=== PATIENT | male | born 1960 | race Caucasian/White ===

== ENCOUNTER 2018-03-12 12:40 | Emergency (ER) | payer BC, MEDICAID ==
[2018-03-12] MEDS ORDERED: Lidocaine 1% Inj (20ml) IJ STA (13:33)
[2018-03-12] MEDS ORDERED: TDAP Vaccine 0.5 mL Syr IM ONE (13:33)
[2018-03-12 13:34] VITALS: BMI 30.7
--- NOTE | 2018-03-12 13:47 | ED PDOC ---
Arrival/HPI - General Chief Complaint: Abnormal Skin Integrity Time Seen by Provider: 03/12/18 13:20 - History of Present Illness Narrative History of Present Illness (Text): 03/12/18 13:44 Patient is a 57 yo M with PMH of Hypertension, Hypercholesterolemia, and Diabetes presents to emergency department due to right index finger injury. Patient states that prior to arrival he accidentally shut this car door on his right index finger, which caused a laceration. Patient denies pain in hand, other fingers, or wrist. Patient is unsure of when his last tetanus shot was. Patient denies CP, SOB, n/v/d, abdominal pain, fever, chills, LINDQUIST, or dizziness. PMD: Jad Huerta) Past Medical History - Provider Review Nursing Documentation Reviewed: Yes - Infectious Disease Hx of Infectious Diseases: None - Cardiac Hx Hypertension: Yes - Endocrine/Metabolic Hx Diabetes Mellitus Type 2: Yes - Psychiatric Hx Substance Use: No - Surgical History Hx Cardiac Catheterization: Yes Other/Comment: x 2 stents - Anesthesia Hx Anesthesia: Yes Hx Anesthesia Reactions: No Hx Malignant Hyperthermia: No Family/Social History - Physician Review Nursing Documentation Reviewed: Yes Family/Social History: No Known Family HX Smoking Status: Heavy Smoker > 10 Cigarettes Daily Hx Alcohol Use: No Hx Substance Use: No Allergies/Home Meds Allergies/Adverse Reactions: Allergies No Known Allergies Allergy (Verified 10/28/12 19:50) Review of Systems - Physician Review All systems were reviewed & negative as marked: Yes - Review of Systems Constitutional: Normal Eyes: Normal ENT: Normal Respiratory: Normal Cardiovascular: Normal Gastrointestinal: Normal Genitourinary Male: Normal Musculoskeletal: Normal Skin: Laceration (right index) Neurological: Normal Endocrine: Normal Hemo/Lymphatic: Normal Psychiatric: Normal Physical Exam Vital Signs Reviewed: Yes Temperature: Afebrile Blood Pressure: Normal Pulse: Regular Respiratory Rate: Normal Appearance: Positive for: Non-Toxic Pain Distress: Mild Mental Status: Positive for: Alert and Oriented X 3 - Systems Exam Head: Present: Atraumatic, Normocephalic Pupils: Present: PERRL Extroacular Muscles: Present: EOMI Conjunctiva: Present: Normal Mouth: Present: Moist Mucous Membranes Neck: Present: Normal Range of Motion Respiratory/Chest: Present: Clear to Auscultation, Good Air Exchange. No: Respiratory Distress, Accessory Muscle Use Cardiovascular: Present: Regular Rate and Rhythm, Normal S1, S2. No: Murmurs Abdomen: No: Tenderness, Distention, Peritoneal Signs Back: Present: Normal Inspection Upper Extremity: Present: Other (1.5 cm laceration on distal, palmar surface of right index finger). No: Cyanosis, Edema Lower Extremity: Present: Normal Inspection. No: Edema Neurological: Present: GCS=15, CN II-XII Intact, Speech Normal Skin: Present: Warm, Dry, Normal Color. No: Rashes Psychiatric: Present: Alert, Oriented x 3, Normal Insight, Normal Concentration Vital Signs Temp Pulse Resp BP Pulse Ox 03/12/18 16:31 72 18 121/79 98 03/12/18 13:55 98.5 F 78 18 117/75 97 Medical Decision Making ED Course and Treatment: 03/12/18 13:48 57 yo M presents to emergency department with laceration to right index finger. Plan: - Xray - Tdap - Laceration repair - Reassess and disposition 03/12/18 14:34 Patient tolerated laceration repair well. See procedure note for further details. 03/12/18 16:23 Right Hand Xray Impression: No acute fracture or dislocation Patient medically stable for discharge. Advised follow up in 7 days for suture removal. (Jad Caldera) 03/16/18 07:42 pt seen with resident finger lac repaired xr neg. advise outpt fu. return precautions (Alpesh Hannah) - RAD Interpretation Radiology Orders: 03/12/18 13:37 HAND RIGHT 3 VIEWS [RAD] Stat - Medication Orders Current Medication Orders: Discontinued Medications Lidocaine HCl (Lidocaine 1% (20ml)) 1 ml IJ STAT STA Stop: 03/12/18 13:34 Last Admin: 03/12/18 13:41 Dose: Tetanus/Reduced Diphtheria/Acell Pertussis (Boostrix Vaccine Inj) 0.5 ml IM .ONCE ONE Stop: 03/12/18 13:34 Last Admin: 03/12/18 13:42 Dose: 0.5 ml Procedure: Wound Repair - Time Performed Time Performed: 14:00 - Time Out Time Out: Side verified, Site verified, Patient ID confirmed, Sterile procedures obs. - Procedure Procedure: Wound Repair: Laceration repair, Right 2nd index finger - Consent Obtained Consent obtained: Verbal - Performed by Performed by: Mid-level Provider - Indications Indication(s):: Laceration (right 2nd index finger 1-2 cm) - Location Finger:: Right, Index (distal, palmar surface) Shape:: Curvilinear Dimensions Length cm: 1-2 Depth:: Subcutaneous fascia - Anesthetic Technique Anesthetic Technique: Regional block (right 2nd finger digital block) Local/Regional Anesthetic:: Lidocaine 1% - Debris Debris:: None - Irrigated Irrigated with ml of normal saline: 100 - Complexity Complexity:: Simple (one layer) - Wound repair method Sutures:: # (5), Size (4-0), Type (Nylon), Technique (simple interrupted) - Muscle repiar layer closed with Muscle repair layer closed with:: Tetanus ordered - Patient tolerated procedure Patient Tolerated Procedure:: Well Disposition/Present on Arrival - Present on Arrival Any Indicators Present on Arrival: No History of DVT/PE: No History of Uncontrolled Diabetes: No Urinary Catheter: No History of Decub. Ulcer: No History Surgical Site Infection Following: None - Disposition Have Diagnosis and Disposition been Completed?: Yes Disposition Time: 16:24 Patient Plan: Discharge - Disposition Diagnosis: Laceration of finger, right Disposition: HOME/ ROUTINE Condition: STABLE Discharge Instructions (ExitCare): Laceration Repair With Stitches (DC) Additional Instructions: 1. Keep laceration site clean and dry 2. Complete 7 day course of antibiotics 3. Apply ointment to laceration site as directed 4. Return to Emergency department in 7 days for suture removal 5. Return to Emergency department if symptoms worsen ELISA RANKIN, thank you for letting us take care of you today. Your provider was Alpesh Hannah DO and you were treated for CUT FINGER (R)HAND. The emergency medical care you received today was directed at your acute symptoms. If you were prescribed any medication, please fill it and take as directed. It may take several days for your symptoms to resolve. Return to the Emergency Department if your symptoms worsen, do not improve, or if you have any other problems. Please contact your doctor or call one of the physicians/clinics you have been referred to that are listed on the Patient Visit Information form that is included in your discharge packet. Bring any paperwork you were given at discharge with you along with any medications you are taking to your follow up visit. Our treatment cannot replace ongoing medical care by a primary care provider outside of the emergency department. Thank you for allowing the [facility] team to be part of your care today. Prescriptions: Cephalexin [Keflex] 500 mg PO Q12H #14 capsule Mupirocin 2% Ointment [Bactroban Ointment] 15 gm TOP BID #1 tube Forms: [employer] (Maltese)
[2018-03-12 13:59] VITALS: RESP 18; TEMP 98.5
--- NOTE | 2018-03-12 16:15 | RAD ---
PROCEDURE: Right Hand Radiographs. HISTORY: trauma, index COMPARISON: None. FINDINGS: BONES: Bone alignment and mineralization are normal. There is no acute displaced fracture or bone destruction. JOINTS: Normal. No osteoarthritic changes. SOFT TISSUES: Normal. OTHER FINDINGS: None. IMPRESSION: No acute fracture or dislocation.
[2018-03-12 16:32] VITALS: BP 121/79; PULSE 72; O2SAT 98
== END 2018-03-12 16:32 | disposition home or self-care (01) ==
LOC: ED 12:40
DX: S61.210A Laceration without foreign body of right index finger without damage to nail, initial encounter (principal); W22.8XXA Striking against or struck by other objects, initial encounter; E11.9 Type 2 diabetes mellitus without complications; E78.00 Pure hypercholesterolemia, unspecified; I10 Essential (primary) hypertension; F17.210 Nicotine dependence, cigarettes, uncomplicated; Z23 Encounter for immunization